=== PATIENT | female | born 1990 | race Caucasian/White ===

== ENCOUNTER → 2016-09-02 | Outpatient (CLI) | payer BC, MEDICAID ==
[~2016-09-02] MED LIST: DOCU-30 PO; FAMO-79 PO; FERR325T10 PO; IBUP-1222 PO; OXYC10TA6 PO; PREN1TAB60 PO
== END | disposition home or self-care (01) ==
LOC: CFH 12:40 → EDSTATUS 12:45
PROVIDERS: ATTEND Obstetrics & Gynecology
DX: N63 Unspecified lump in breast (principal)